=== PATIENT | female | born 1965 | race Caucasian/White ===

== ENCOUNTER 2021-03-09 13:40 | Emergency (ER) | payer OTHER, SELFPAY ==
[2021-03-09 14:00] VITALS: BP 124/73; PULSE 100; RESP 20; TEMP 37.6; O2SAT 98
--- NOTE | 2021-03-09 14:27 | ED.ABDPAIN ---
HPI - Abdominal Pain General Chief Complaint: Abdominal Pain Stated Complaint: Poss bladder or kidney Time Seen by Provider: 03/09/21 14:05 Source: patient and RN notes reviewed Mode of arrival: ambulatory Limitations: no limitations History of Present Illness HPI narrative: Patient presents today complaining of urinary frequency, lower abdominal discomfort, chills, weakness, intermittent right back pain. The urinary frequency and lower abdominal discomfort started 3 days ago. The weakness and chills started today. Patient believes she may have a UTI. She denies nausea, vomiting, headache, dysuria, urgency. States she always has microscopic hematuria and has been worked up by urologist in the past. She denies any gross hematuria. She currently rates her abdominal pain 4. She took some Tylenol yesterday with mild relief and has been drinking cranberry juice today. States her abdominal pain increases when she stomps . MD elicited complaint: abdominal pain Related Data Home Medications Medication Instructions Recorded Confirmed No Home Medications 03/09/21 03/09/21 Allergies Allergy/AdvReac Type Severity Reaction Status Date / Time codeine Allergy Itching Verified 03/09/21 14:07 tramadol Allergy Itching Verified 03/09/21 14:08 Penicillins AdvReac Vomiting Verified 03/09/21 14:08 Review of Systems Review of Systems: Narrative: CONSTITUTIONAL: Denies body aches, fever, sweats.+ Chills and weakness EYES: Denies visual changes, redness, or discharge. ENT: Denies rhinorrhea, congestion, sore throat, or otalgia. CARDIOVASCULAR: Denies chest pain, palpitations, or edema. RESPIRATORY: Denies cough or dyspnea. GASTROINTESTINAL: Denies nausea, vomiting, or diarrhea. + Lower abdominal pain, right flank pain GENITOURINARY: Denies dysuria or hematuria. +Urinary frequency SKIN: Denies rash, itching, or wounds. MUSCULOSKELETAL: Denies joint pain, or myalgia. NEUROLOGIC: Denies headache, numbness, tingling. PSYCH: Denies depression or anxiety. [facility] Surgical History Surgical History (Updated 03/09/21 @ 15:06 by Gill Alvarado, [employer], ) History of cholecystectomy Comments At time of signature, I have reviewed and agree with nursing past medical, surgical, social and family history unless otherwise noted. Please see nursing chart for further information. There is no relevant family history pertinent to the presenting complaint Exam Narrative: Exam Narrative: GENERAL: Well-appearing, well-nourished, and in no acute distress. HEAD: Normocephalic, atraumatic. EYES: EOMI. No redness or drainage. Conjunctivae normal. ENT: Mucous membranes pink and moist. NECK: Normal AROM. Supple. No lymphadenopathy. CHEST: No respiratory distress. Clear to auscultation. HEART: Regular rate and rhythm. No murmur appreciated. Normal peripheral pulses. ABDOMEN: Soft,nondistended, normal active bowel sounds. + Significant tenderness in the suprapubic and right lower quadrant without rebound. + Guarding.+ Heel jar. -CVAT MUSCULOSKELETAL: No bony tenderness. EXTREMITIES: Normal range of motion. No edema. SKIN: Warm, dry, no rash. Capillary refill normal. Normal skin turgor. NEURO: No focal deficits. Alert and oriented x3. Gait steady. PSYCH: Normal affect. No signs of depression or anxiety. Course Vital Signs Vital signs: Vital Signs Temperature 99.6 F 03/09/21 14:00 Pulse Rate 100 03/09/21 14:00 Respiratory Rate 20 03/09/21 14:00 Blood Pressure 124/73 03/09/21 14:00 Pulse Oximetry 98 03/09/21 14:00 Temperature 99.6 F 03/09/21 14:00 Pulse Rate 100 03/09/21 14:00 Respiratory Rate 20 03/09/21 14:00 Blood Pressure 124/73 03/09/21 14:00 Pulse Oximetry 98 03/09/21 14:00 Reviewed Transfer Transfered to: [facility] Transportation: Other (Private vehicle) Transfer rationale: Suprapubic and right lower quadrant pain, rule out appendicitis Mathew Accepting physician: Mathew
== END 2021-03-09 14:25 | disposition short-term general hospital (02) ==
PROVIDERS: Emergency Provider Nurse Practitioner
DX: R10.30 Lower abdominal pain, unspecified (principal); Z85.41 Personal history of malignant neoplasm of cervix uteri
CPT/HCPCS: 81003; 99212; G0463